=== PATIENT | male | born 1990 | race Caucasian/White ===

== ENCOUNTER 2017-01-06 01:16 | Emergency (ER) | payer OTHER ==
[~2017-01-06] VITALS: Ht 182.9 cm; Wt 81.6 kg
--- NOTE | 2017-01-06 01:26 | NUR ---
PT BIBRA 102 and [employer] S/P THREATENING TO JUMP OFF ROOF, PT ADMITS TO +EOTH. PT AOX4 RR EVEN AND UNLABORED. NO SOB NOTED. NAD NOTED. NO NVD AT THIS TIME. PT NOT DIAPHORETIC. PT GOWNED AND PLACED ON MONITOR WAITING FOR MD BALES. PT DENIES HI/SI AT THIS TIME.
--- NOTE | 2017-01-06 01:27 | NUR ---
DR. COBB AT BEDSIDE FOR EVAL.
--- NOTE | 2017-01-06 01:28 | NUR ---
[employer] AT BEDSIDE.
[2017-01-06] MEDS ORDERED: IV NS 0.9% 1,000 ML BAG IV ONE (01:30)
[2017-01-06] MEDS ORDERED: IV SET PRIMARY 1 EA INFUS.SET MC ONE (01:52)
[2017-01-06] MEDS ORDERED: IV NS 0.9% 1,000 ML ONE (01:52)
[2017-01-06 02:03] LABS: BASOPHILS % (AUTO) 0.3 % (0.0-2.0); EOSINOPHILS # (AUTO) 0.1 /CMM (0.0-0.7); EOSINOPHILS % (AUTO) 1.6 % (0.0-6.0); HEMATOCRIT 48 % (39-51); HEMOGLOBIN 15.9 g/dL (13.5-17.5); LYMPHOCYTES # (AUTO) 1.4 /CMM (0.8-4.8); LYMPHOCYTES % (AUTO) 19.4 % (20.0-44.0); MEAN CORPUSCULAR HEMOGLOBIN 32 PG (26.0-33.0); MEAN CORPUSCULAR HGB CONC 33 g/dl (31.0-36.0); MEAN CORPUSCULAR VOLUME 95 fL (80-96); MONOCYTES # (AUTO) 0.3 /CMM (0.1-1.30); MONOCYTES % (AUTO) 4.4 % (2.0-12.0); NEUTROPHILS # (AUTO) 5.5 /CMM (1.8-8.9); NEUTROPHILS % (AUTO) 74.3 % (43.0-81.0); PLATELET COUNT (AUTO) 244 /CMM (150-450); RDW COEFFICIENT OF VARIATION 12.7 (11.5-15.0); WHITE BLOOD COUNT (AUTO) 7.4 K/uL (4.3-11.0)
[2017-01-06 02:16] LABS: CALCIUM, SERUM 8.7 mg/dL (8.5-10.1); CREATININE 1.1 mg/dL (0.6-1.3); POTASSIUM 3.6 mmol/L (3.5-5.1)
[2017-01-06 02:20] LABS: ALBUMIN 4.9 g/dL (3.4-5.0); BILIRUBIN,DIRECT 0.1 mg/dL (0.0-0.2); BILIRUBIN,TOTAL 0.3 mg/dL (0.2-1.0); TOTAL PROTEIN, SERUM 8.5 g/dL (6.4-8.2)
[2017-01-06 02:21] LABS: SALICYLATE 1.4 mg/dL (2.8-20.0)
--- NOTE | 2017-01-06 02:22 | NUR ---
URINE COLLECTED. CALLED LAB FOR LITERATURE TEACHER.
[2017-01-06 02:43] LABS: CANNABINOID, URINE NEGATIVE (NEGATIVE); PHENCYCLIDINE SCREEN,URINE NEGATIVE (NEGATIVE)
[2017-01-06] MEDS ORDERED: HALOPERIDOL LACTATE INJ 5 MG/ML VIAL IV ONE (03:30)
[2017-01-06] MEDS ORDERED: HALOPERIDOL LACTATE INJ 5 MG/ML VIAL ONE (04:05)
--- NOTE | 2017-01-06 04:15 | NUR ---
PT REMOVED IV ON LEFT AC. PRESSURE GAUZE APPLIED. NO BLEEDING NOTED. PT EXPLAINED RISK AND BENEFITS X3. PT VERBALIZE UNDERSTANDING.
--- NOTE | 2017-01-06 04:21 | NUR ---
VERBAL ORDERS PER DR. COBB TO GIVE IV HALDOL 5MG, IM INSTEAD. PT MEDICATED ORDERED.
[2017-01-06] MEDS ORDERED: HALOPERIDOL LACTATE INJ 5 MG/ML VIAL IM ONE (04:30)
--- NOTE | 2017-01-06 07:00 | NUR ---
REPORT GIVEN TO LAVELL MANE FOR PORFIRIO.
--- NOTE | 2017-01-06 07:10 | NUR ---
RECEIVED REPORT FROM ALANNAH MONTE FOR PORFIRIO
--- NOTE | 2017-01-06 10:00 | NUR ---
CALLED [facility] FOR PSYCH EVAL
--- NOTE | 2017-01-06 11:13 | NUR ---
PET team - at bedside
[2017-01-06] MEDS ORDERED: LORAZEPAM 1 MG TABLET ONE (11:54)
[2017-01-06] MEDS ORDERED: LORAZEPAM 1 MG TABLET PO ONE (12:00)
--- NOTE | 2017-01-06 12:20 | NUR ---
PT IS MEDICALLY AND PSYCH CLEARED. D/C TO FAMILY IN STABLE IN STABLE CONDITION.
[2017-01-06 12:30] VITALS: BP 115/62
== END 2017-01-06 12:31 | disposition home or self-care (01) ==
LOC: ER 01:18
DX: F10.129 Alcohol abuse with intoxication, unspecified (principal); T14.91 Suicide attempt
CPT/HCPCS: 36415; 80048; 80076; 80305; 80329; 85025; 93005; 96360; 96372; 99285; A4606; G0480 ×2; J1630; J7030; Z7610; G6039-TC